=== PATIENT | male | born 2005 | race Caucasian/White ===

== ENCOUNTER 2024-04-30 11:49 | Emergency (ER) | payer OTHER ==
[2024-04-30 13:09] LABS: #Basophils 0.03 10x3/uL (0.0-0.2); #Neutrophils 7.12 10x3/uL (1.5-8.4); %Basophils 0.4 % (0.0-2.0); %Lymphocytes 6.8 % (18.0-47.0); %Monocytes 9.3 % (0.0-10.0); Hematocrit 41.9 % (38.8-50.0); Hemoglobin 13.7 g/dL (13.5-17.5); Mean Corpuscular HGB CONC 32.7 g/dL (32.0-36.0); Mean Corpuscular Hemoglobin 25.3 pg (27.0-33.0); Mean Corpuscular Volume 77.3 fL (81.2-95.1); Mean Platelet Volume 9.4 fL (7.4-10.4); Platelet Count 246 10x3/uL (150-450); Red Blood Cell (RBC) Count 5.42 10x6/uL (4.32-5.72); White Blood Cell (WBC) Count 8.6 10x3/uL (3.5-10.5)
[2024-04-30 13:27] LABS: ALT (SGPT) 35 U/L (8-55); AST (SGOT) 30 U/L (5-34); Albumin 4.3 g/dL (3.5-5.0); Alkaline Phosphatase 66 U/L (50-130); Anion Gap 15 mmol/L (10-20); BUN (Urea Nitrogen) 17 mg/dL (8.9-20.6); Bilirubin, Total 0.8 mg/dL (0.2-1.2); Calc. Creatinine Clearance 0 mL/min (70-130); Calcium 9.6 mg/dL (7.8-10.44); Carbon Dioxide 23 mmol/L (22-29); Chloride 99 mmol/L (98-107); Estimated GFR 89; Globulin 3.1 g/dL (2.4-3.5); Glucose 96 mg/dL (70-105); Potassium 4.4 mmol/L (3.5-5.1); Protein, Total 7.4 g/dL (6.0-8.3); Sodium 133 mmol/L (136-145)
== END 2024-04-30 14:16 | disposition home or self-care (01) ==
LOC: CSHERS 11:49
DX: J06.9 Acute upper respiratory infection, unspecified (principal); E86.0 Dehydration; R55 Syncope and collapse; R05.9 Cough, unspecified
CPT/HCPCS: 36415; 80053; 85025; 93005; 99283

== ENCOUNTER 2024-05-16 00:45 | Emergency (ER) | payer OTHER | END 2024-05-16 03:32 | disposition home or self-care (01) | LOC: CSHERS 00:45 | DX: J45.909 Unspecified asthma, uncomplicated (principal); R07.81 Pleurodynia | CPT/HCPCS: 71045 ==